=== PATIENT | female | born 1970 | race Caucasian/White ===

== ENCOUNTER 2021-05-28 08:07 | Inpatient (IN) | payer BC ==
[~2021-05-28] VITALS: Ht 162.6 cm; Wt 87.9 kg
[~2021-05-28 08:07] MED LIST: RANI150; RXTRAM50 PO; TRAM50 PO
[2021-05-28] MEDS ORDERED: IRBESARTAN-HCT1 EAC3 PO (08:29)
[2021-05-28 08:46] LABS: BASOPHILS ABSOLUTE AUTO 0.03 K/mm3 (0.00-0.23); BASOPHILS PERCENT AUTO 0 % (0-2); EOSINOPHILS PERCENT AUTO 1 % (0-6); Hematocrit 39.8 % (33.0-51.0); Hemoglobin 13.7 g/dL (11.5-16.0); IMMATURE GRAN ABSOLUTE AUTO 0.04 K/mm3 (0.00-0.10); IMMATURE GRAN PERCENT AUTO 0 % (0-1); LYMPHOCYTES ABSOLUTE AUTO 2.83 K/mm3 (0.84-5.20); LYMPHOCYTES PERCENT AUTO 29 % (21-46); MONOCYTES ABSOLUTE AUTO 0.61 K/mm3 (0.16-1.47); MONOCYTES PERCENT AUTO 6 % (4-13); Mean Corpuscular HGB 33.2 pg (26.0-34.0); Mean Corpuscular HGB Conc 34.4 g/dL (31.5-36.5); Mean Corpuscular Volume 96 fL (80-100); Mean Platelet Volume 9.5 fL (9.1-12.4); NEUTROPHILS ABSOLUTE AUTO 6.01 K/mm3 (1.96-9.15); NEUTROPHILS PERCENT AUTO 63 % (41-73); Platelet Count 303 K/mm3 (150-400); RDW Coefficient Variation 14.5 % (11.7-14.2); RDW Standard Deviation 50.9 fL (35.1-46.3); Red Blood Cell Count 4.13 M/mm3 (3.80-5.20); White Blood Cell Count 9.62 K/mm3 (4.00-11.30)
[2021-05-28 09:04] LABS: Alanine Aminotransfer (ALT/SGP 47 U/L (12-78); Albumin, Blood 3.6 g/dL (3.4-5.0); Albumin/Globulin Ratio 0.9 (0.8-1.8); Alk Phos 109 U/L (50-136); Anion Gap 6 mmol/L (6-16); Aspartate Aminotrans (AST/SGOT 31 U/L (12-37); Bilirubin, Total 0.1 mg/dL (0.1-1.0); Blood Urea Nitrogen 13 mg/dL (8-24); Bun/Creatinine Ratio 18.1 (12.0-20.0); CO2, Blood 25 mmol/L (21-32); Calcium, Blood 9.1 mg/dL (8.5-10.1); Chloride, Blood 107 mmol/L (98-108); Creatinine, Blood 0.72 mg/dL (0.40-1.00); Globulin, Blood 4.1 g/dL (2.2-4.0); Glomerular Filtration Rate >60 (60-); Glucose, Blood 120 mg/dL (70-99); Potassium, Blood 3.9 mmol/L (3.5-5.5); Sodium, Blood 138 mmol/L (136-145); Total Protein, Blood 7.7 g/dL (6.4-8.2)
[2021-05-28 09:35] LABS: Anti-Xa UFH, PHA Monitoring <0.10 IU/mL; International Normalized Ratio 0.93; Prothrombin Time Results 9.8 Sec (9.7-11.5)
--- NOTE | 2021-05-28 13:12 | NUR ---
PT ARRIVED IN THE ROOM FROM ERD REPORT RECEIVED FROM ER NURSE XIANG. PT IS HERE FOR UNSTABLE ANGINA, ALERT AND ORIENTED X4, AMBULATORY. PT WAS ALREADY CHEST PAIN FREE WHEN PT ARRIVED IN THE ROOM 1 NITRO SL DOSE WAS GIVEN IN THE ER, HEPARIN GTT RUNNING AT 15U/KG/HR, PLAN FOR ANGIO IN AM. VITALS HRR SR AT 70'S, BP SYSTOLIC WAS AT 160'S UPON ARRIVAL NOW DOWN TO 115'S, SATS ABOVE 97% ON RA, AFEBRILE. AT BEDSIDE AT THIS TIME, AWARE OF THE PLANS. PT NOW RESTING IN BED, NO ISSUES REPORTED AT THIS TIME, CALL LIGHTS IN REACH WILL MONITOR UNTIL END OF SHIFT
[2021-05-29 02:15] LABS: Hemoglobin 12.8 g/dL (11.5-16.0); Mean Platelet Volume 9.9 fL (9.1-12.4); Platelet Count 278 K/mm3 (150-400)
--- NOTE | 2021-05-29 05:38 | NUR ---
SHIFT SUMMARY PT ALERT AND ORIENTED X 4. HR STABLE. BP STABLE. NO CP OR PRESSURE REPORTED. NITRO AT BEDSIDE. HEPARIN GTT, SEE EMAR. PT SBA TO BATHROOM. NPO SINCE MIDNIGHT FOR PROCEDURE THIS AM. OXYGEN SATURATION MAINTAINED ABOVE 92% ON RA. PT ABLE TO TURN SELF IN BED NEEDED. CALL LIGHT WITHIN REACH. WILL CONT TO MONITOR UNTIL REPORT GIVEN TO DAYSHIFT RN.
--- NOTE | 2021-05-29 18:07 | NUR ---
SHIFT SUMMARY: PT CONTINUES A&Ox4 T/OUT SHIFT, MAINTAINING O2 SATS >93% ON RA. VS STABLE. PT REPORTS CHEST PRESSURE W/ACTIVITY THAT IS RELIEVED W/REST, IS MEDICATED WITH NITRO X1 AND MORPHINE X1. PT AMBULATES INDEPENDENTLY TO/FROM RESTROOM. PT TO CINDER WORKER APPROX AT APPROX 1400, STENTS PLACED, RETURNS APPROX 1620 W/RT RADIAL ACCESS SITE, NO SIGNS OF HEMATOMA TO SITE, PT DENIES CHEST PAIN/PRESSURE. VS MONITORING IN PROGRESS PER ORDERS. PT PROVIDED WITH MEAL TRAY, WILL BEGIN DEFLATING TR BAND ONCE PT FINISHED W/MEAL. WILL CONTINUE TO MONITOR AND TREAT ACCORDINGLY UNTIL CHANGE OF SHIFT.
--- NOTE | 2021-05-29 22:20 | NUR ---
TR BAND OFF AT THIS TIME. OPSITE IN PLACE. NO BRUISING, NO BLEEDING, NO HEMATOMA. ARM BOARD IN PLACE.
--- NOTE | 2021-05-30 06:50 | NUR ---
SHIFT SUMMARY NO ACUTE CHANGES THIS SHIFT. PT A&OX4. SP02>92% ON RA. TELEMETRY SHOWS NSR, HR 70'S AVG. PT HAD R RADIAL SITE, TR BAND OFF THIS SHIFT, OPSITE PLACED, ARM BOARD IN PLACE. NO BRUISING, NO BLEEDING, NO HEMATOMA. EKG DONE THIS AM. PRINT OFF IN FRONT OF CHART. PT DENIED PAIN. INDEPENDENT IN ROOM. SLEPT MOST OF NIGHT. CALL LIGHT IN REACH.
[2021-05-30] MEDS ORDERED: METO50ER PO (08:47)
[2021-05-30] MEDS ORDERED: ASPI81CH PO (08:47)
[2021-05-30] MEDS ORDERED: CLOP75 PO (08:47)
[2021-05-30] MEDS ORDERED: LIPITOR80 MG PO (08:47)
--- NOTE | 2021-05-30 09:30 | NUR ---
INITIAL ASSESSMENT: 829: Patient is alert and oriented, she is sitting up in bed eating breakfast. She is alert and oriented, she denies cp or SOB. HRR, SR in the 60s per telemetry. LS CTA, biox WNL on RA. BT+. Right radial site with opsite no oozing present, arm board in place-pt has been educated re:right radial site restrictions. PPP. VSS. Pt states senior project manager has been in and he she has been cleared to go home. AM meds given whole with water, no difficulty swallowing. Dr. Arias at bedside, plan for discharge this AM. 929:DC plans reviewed with patient and , both verbalize understanding. IV DC'd cath intact. [facility] .
== END 2021-05-30 09:51 | disposition home or self-care (01) | DRG 247 ==
LOC: ER 08:07 → PCU 08:08 → ER 08:08 → PCU 08:08
PROVIDERS: Physician Assistant; ADMIT Internal Medicine
PROC: 027035Z Dilation of Coronary Artery, One Artery with Two Drug-eluting Intraluminal Devices, Percutaneous Approach (ICD-10-PCS; principal; 2021-05-29)
PROC: 4A023N7 Measurement of Cardiac Sampling and Pressure, Left Heart, Percutaneous Approach (ICD-10-PCS; 2021-05-29)
PROC: B2111ZZ Fluoroscopy of Multiple Coronary Arteries using Low Osmolar Contrast (ICD-10-PCS; 2021-05-29)
DX: I25.110 Atherosclerotic heart disease of native coronary artery with unstable angina pectoris (principal); F17.210 Nicotine dependence, cigarettes, uncomplicated; I10 Essential (primary) hypertension; F41.9 Anxiety disorder, unspecified; E78.5 Hyperlipidemia, unspecified; E66.9 Obesity, unspecified; Z68.29 Body mass index [BMI] 29.0-29.9, adult; Z82.49 Family history of ischemic heart disease and other diseases of the circulatory system
CPT/HCPCS: 36415; 71045; 80053; 83690; 84484; 85014; 85018; 85025; 85049; 85347; 85520; 85610; 85730; 86850; 86900; 86901; 93005; 93010; 93306; 93458; 96365; 96375; 96376; 99152; 99153; 99285-25; A9270; C1725; C1769; C1874; C1887; C1894; C9600; G0378; J1644; J2250; J2270; J3010; J7030; J7050; Q9967

== ENCOUNTER 2022-03-17 11:51 | Inpatient (IN) | payer BC ==
[~2022-03-17] VITALS: Ht 162.6 cm; Wt 83.5 kg
[~2022-03-17 11:51] MED LIST changes: +ASPI81CH PO; +CLOP75 PO; +IRBESARTAN-HCT1 EAC3 PO; +LIPITOR80 MG PO; +METO50ER PO
[2022-03-17 12:38] LABS: BASOPHILS ABSOLUTE AUTO 0.02 K/mm3 (0.00-0.23); BASOPHILS PERCENT AUTO 0 % (0-2); EOSINOPHILS PERCENT AUTO 1 % (0-6); Hematocrit 37.4 % (33.0-51.0); Hemoglobin 12.9 g/dL (11.5-16.0); IMMATURE GRAN ABSOLUTE AUTO 0.03 K/mm3 (0.00-0.10); IMMATURE GRAN PERCENT AUTO 0 % (0-1); LYMPHOCYTES ABSOLUTE AUTO 2.07 K/mm3 (0.84-5.20); LYMPHOCYTES PERCENT AUTO 29 % (21-46); MONOCYTES ABSOLUTE AUTO 0.31 K/mm3 (0.16-1.47); MONOCYTES PERCENT AUTO 4 % (4-13); Mean Corpuscular HGB 32.9 pg (26.0-34.0); Mean Corpuscular HGB Conc 34.5 g/dL (31.5-36.5); Mean Corpuscular Volume 95 fL (80-100); Mean Platelet Volume 10.1 fL (9.1-12.4); NEUTROPHILS ABSOLUTE AUTO 4.69 K/mm3 (1.96-9.15); NEUTROPHILS PERCENT AUTO 65 % (41-73); Platelet Count 285 K/mm3 (150-400); RDW Coefficient Variation 13.2 % (11.7-14.2); RDW Standard Deviation 46.4 fL (35.1-46.3); Red Blood Cell Count 3.92 M/mm3 (3.80-5.20); White Blood Cell Count 7.22 K/mm3 (4.00-11.30)
[2022-03-17 12:56] LABS: Albumin, Blood 3.6 g/dL (3.4-5.0); Albumin/Globulin Ratio 0.9 (0.8-1.8); Bilirubin, Total 0.2 mg/dL (0.1-1.0); Bun/Creatinine Ratio 13.1 (12.0-20.0); Calcium, Blood 9.3 mg/dL (8.5-10.1); Creatinine, Blood 0.61 mg/dL (0.40-1.00); Potassium, Blood 3.6 mmol/L (3.5-5.5); Total Protein, Blood 7.6 g/dL (6.4-8.2)
[2022-03-17] MEDS ORDERED: Bystolic10 MG PO (14:19)
[2022-03-17] MEDS ORDERED: LOSA25 PO (14:19)
[2022-03-18 05:48] LABS: BASOPHILS ABSOLUTE AUTO 0.01 K/mm3 (0.00-0.23); BASOPHILS PERCENT AUTO 0 % (0-2); EOSINOPHILS ABSOLUTE AUTO 0.14 K/mm3 (0.00-0.68); EOSINOPHILS PERCENT AUTO 2 % (0-6); Hematocrit 35.1 % (33.0-51.0); IMMATURE GRAN ABSOLUTE AUTO 0.01 K/mm3 (0.00-0.10); IMMATURE GRAN PERCENT AUTO 0 % (0-1); LYMPHOCYTES ABSOLUTE AUTO 2.28 K/mm3 (0.84-5.20); LYMPHOCYTES PERCENT AUTO 34 % (21-46); MONOCYTES ABSOLUTE AUTO 0.38 K/mm3 (0.16-1.47); MONOCYTES PERCENT AUTO 6 % (4-13); Mean Corpuscular HGB 32.6 pg (26.0-34.0); Mean Corpuscular HGB Conc 34.2 g/dL (31.5-36.5); Mean Corpuscular Volume 95 fL (80-100); Mean Platelet Volume 10.3 fL (9.1-12.4); NEUTROPHILS ABSOLUTE AUTO 3.94 K/mm3 (1.96-9.15); NEUTROPHILS PERCENT AUTO 58 % (41-73); Platelet Count 251 K/mm3 (150-400); RDW Coefficient Variation 13.3 % (11.7-14.2); RDW Standard Deviation 46.5 fL (35.1-46.3); Red Blood Cell Count 3.68 M/mm3 (3.80-5.20); White Blood Cell Count 6.76 K/mm3 (4.00-11.30)
[2022-03-18 06:21] LABS: Alanine Aminotransfer (ALT/SGP 44 U/L (12-78); Albumin/Globulin Ratio 0.9 (0.8-1.8); Alk Phos 99 U/L (50-136); Anion Gap 6 mmol/L (6-16); Aspartate Aminotrans (AST/SGOT 23 U/L (12-37); Bilirubin, Total 0.2 mg/dL (0.1-1.0); Blood Urea Nitrogen 12 mg/dL (8-24); Bun/Creatinine Ratio 18.6 (12.0-20.0); CHOL/HDL RATIO 3.2; CO2, Blood 23 mmol/L (21-32); Calcium, Blood 8.7 mg/dL (8.5-10.1); Chloride, Blood 109 mmol/L (98-108); Cholesterol 178 mg/dL (50-200); Creatinine, Blood 0.64 mg/dL (0.40-1.00); Globulin, Blood 3.5 g/dL (2.2-4.0); Glomerular Filtration Rate 105 (60-); Glucose, Blood 105 mg/dL (70-99); HDL Cholesterol 55 mg/dL (>39); LDL/HDL RATIO 1.7; Low Density Lipoprotein Chol 93 mg/dL (0-110); Potassium, Blood 3.7 mmol/L (3.5-5.5); Sodium, Blood 138 mmol/L (136-145); Total Protein, Blood 6.5 g/dL (6.4-8.2); Triglycerides 149 mg/dL (30-160); Very Low Density Lipoprot Chol 29 mg/dL (6-32)
[2022-03-18 13:26] LABS: Prothrombin Time Results 10.5 Sec (9.7-11.5)
[2022-03-20] MEDS ORDERED: TICA90TA PO (10:48)
[2022-03-20] MEDS ORDERED: AMLO5 PO (10:48)
== END 2022-03-20 12:00 | disposition home or self-care (01) | DRG 247 ==
LOC: ER 11:51 → MEDS 14:04 → PCU 03-19 11:46 → MEDS 03-19 11:46 → PCU 03-19 13:01 → ENPENDDIS 03-20 10:48 → PCU 03-20 12:00
PROVIDERS: Student in an Organized Health Care Education/Training Program; ADMIT Student in an Organized Health Care Education/Training Program
PROC: 027034Z Dilation of Coronary Artery, One Artery with Drug-eluting Intraluminal Device, Percutaneous Approach (ICD-10-PCS; principal; 2022-03-19)
PROC: 4A023N7 Measurement of Cardiac Sampling and Pressure, Left Heart, Percutaneous Approach (ICD-10-PCS; 2022-03-19)
PROC: B211YZZ Fluoroscopy of Multiple Coronary Arteries using Other Contrast (ICD-10-PCS; 2022-03-19)
PROC: B240ZZ3 Ultrasonography of Single Coronary Artery, Intravascular (ICD-10-PCS; 2022-03-19)
DX: T82.855A Stenosis of coronary artery stent, initial encounter (principal); I25.110 Atherosclerotic heart disease of native coronary artery with unstable angina pectoris; F17.210 Nicotine dependence, cigarettes, uncomplicated; I10 Essential (primary) hypertension; F41.9 Anxiety disorder, unspecified; F10.10 Alcohol abuse, uncomplicated; K21.9 Gastro-esophageal reflux disease without esophagitis; E78.5 Hyperlipidemia, unspecified; R53.83 Other fatigue; I44.0 Atrioventricular block, first degree; Z90.49 Acquired absence of other specified parts of digestive tract; Z88.5 Allergy status to narcotic agent; I25.2 Old myocardial infarction; Z79.82 Long term (current) use of aspirin; Z79.02 Long term (current) use of antithrombotics/antiplatelets; Z79.899 Other long term (current) drug therapy; Z95.5 Presence of coronary angioplasty implant and graft
CPT/HCPCS: 36415; 71046; 76937; 78452; 80053; 80061; 83036; 84443; 84484; 85025; 85347; 85610; 85730; 93005; 93010; 93017; 93306; 93454; 96372; 96374; 96375; 96376; 99152; 99153; 99285-25; A9270; A9500; C1725; C1769; C1874; C1887; C1894; C9600; G0378; J0360; J1644; J1650; J1885; J2250; J2785; J3010; J7030; J7050; Q9967